=== PATIENT | female | born 1980 | race African-American/Black ===

== ENCOUNTER 2020-05-26 16:32 | Emergency (ER) | payer OTHER ==
[~2020-05-26] VITALS: Ht 152.4 cm; Wt 59.0 kg
[2020-05-26] MEDS ORDERED: METOCLOPRAMIDE 55 M1 PO (17:00)
[2020-05-26] MEDS ORDERED: IBUPROFEN 600600 M1 PO (17:01)
[2020-05-26] MEDS ORDERED: PROAIR HFA8.5 GM INH (17:01)
[2020-05-26] MEDS ORDERED: ACETAMINOPHEN325 MG PO (17:01)
[2020-05-26] MEDS ORDERED: SYMBICORT80 MCG/4.1 INH (17:01)
[2020-05-26 17:54] VITALS: BP 131/86
== END 2020-05-26 17:59 ==
LOC: ER 16:32
DX: M76.32 Iliotibial band syndrome, left leg (principal); J45.909 Unspecified asthma, uncomplicated; Z79.899 Other long term (current) drug therapy

== ENCOUNTER 2020-08-22 19:09 | Emergency (ER) | payer OTHER ==
[~2020-08-22] VITALS: Ht 152.4 cm; Wt 54.4 kg
[~2020-08-22 19:09] MED LIST: ACETAMINOPHEN325 MG PO; ANTI-ITCH28 G1 TOP; IBUPROFEN 600600 M1 PO; METOCLOPRAMIDE 55 M1 PO; PROAIR HFA8.5 GM INH; SYMBICORT80 MCG/4.1 INH; VISTARIL 25 MG25 M1 PO
[2020-08-22 20:58] LABS: HEMOGLOBIN 11.5 gm/dL (12.0-15.0); MCV 87.5 fL (80.0-100.0); WBC 5.3 thou/uL (4.0-11.0)
[2020-08-22 21:00] LABS: ABSOLUTE NEUTROPHILS 2.6 thou/uL (1.4-8.2); BASOPHILS 0.9 % (0.0-2.0); EOSINOPHILS 4.7 % (0.0-3.0); HEMATOCRIT 35.8 % (37.0-47.0); LYMPHOCYTES 37.2 % (24.0-44.0); MCH 28.3 pg (26.0-34.0); MCHC 32.3 g/dL (28.0-37.0); MONOCYTES 7.8 % (1.0-8.0); PLATELET COUNT 213 thou/uL (150-400); POLYS 49.4 % (36.0-66.0); RBC 4.09 mil/uL (4.20-5.00); RDW 14.7 % (10.5-14.5)
[2020-08-22 21:05] LABS: CALCIUM 8.9 mg/dL (8.5-10.1); CREATININE 0.7 mg/dL (0.6-1.0)
[2020-08-22 21:06] LABS: POTASSIUM 2.9 mmol/L (3.5-5.1)
[2020-08-23 00:12] VITALS: BP 123/76
== END 2020-08-23 00:15 | disposition home or self-care (01) ==
LOC: ER 19:09
PROVIDERS: Nurse Practitioner
DX: L72.3 Sebaceous cyst (principal); E87.6 Hypokalemia; R42 Dizziness and giddiness; J45.909 Unspecified asthma, uncomplicated; K21.9 Gastro-esophageal reflux disease without esophagitis; Z79.899 Other long term (current) drug therapy

== ENCOUNTER 2020-10-14 12:39 | Emergency (ER) | payer OTHER ==
[~2020-10-14] VITALS: Ht 152.4 cm; Wt 59.0 kg
[2020-10-14 12:40] VITALS: BP 127/81
== END 2020-10-14 13:29 | disposition home or self-care (01) ==
LOC: ER 12:39
DX: M79.652 Pain in left thigh (principal); J45.909 Unspecified asthma, uncomplicated; Z79.899 Other long term (current) drug therapy; X50.1XXA Overexertion from prolonged static or awkward postures, initial encounter; Y93.89 Activity, other specified; Y92.89 Other specified places as the place of occurrence of the external cause; Y99.8 Other external cause status

== ENCOUNTER 2020-11-18 14:22 | Emergency (ER) | payer OTHER ==
[~2020-11-18] VITALS: Ht 157.5 cm; Wt 55.8 kg
[2020-11-18 15:21] LABS: ABSOLUTE NEUTROPHILS 3.7 thou/uL (1.4-8.2); BASOPHILS 0.6 % (0.0-2.0); EOSINOPHILS 4.7 % (0.0-3.0); HEMATOCRIT 37.4 % (37.0-47.0); HEMOGLOBIN 12.3 gm/dL (12.0-15.0); LYMPHOCYTES 24.7 % (24.0-44.0); MCH 28.4 pg (26.0-34.0); MCHC 32.8 g/dL (28.0-37.0); MCV 86.6 fL (80.0-100.0); MONOCYTES 7.8 % (1.0-8.0); PLATELET COUNT 195 thou/uL (150-400); POLYS 62.2 % (36.0-66.0); RBC 4.32 mil/uL (4.20-5.00); WBC 5.9 thou/uL (4.0-11.0)
[2020-11-18 15:32] LABS: ANION GAP 11 mmol/L (7-16); BUN 10 mg/dL (7-18); CALCIUM 8.9 mg/dL (8.5-10.1); CHLORIDE 100 mmol/L (98-107); CO2 25 mmol/L (21-32); CREATININE 0.7 mg/dL (0.6-1.0); GLUCOSE 101 mg/dL (74-106); POTASSIUM 3.2 mmol/L (3.5-5.1); SODIUM 136 mmol/L (136-145)
[2020-11-18 15:38] LABS: URINE BILIRUBIN NEGATIVE (Negative); URINE BLOOD TRACE (Negative); URINE CLARITY CLEAR; URINE COLOR YELLOW; URINE GLUCOSE-RANDOM* NEGATIVE (Negative); URINE KETONES NEGATIVE (Negative); URINE LEUKOCYTES-REFLEX NEGATIVE (Negative); URINE NITRITE-REFLEX NEGATIVE (Negative); URINE PROTEIN (DIPSTICK) NEGATIVE (Negative); URINE SPECIFIC GRAVITY >= 1.030 (1.005-1.035); URINE UROBILINOGEN 0.2 E.U./dl (0.2-1.0)
[2020-11-18 15:42] LABS: ALBUMIN 3.4 g/dL (3.4-5.0); SGOT 13 U/L (15-37); SGPT 16 U/L (14-59); TOTAL BILIRUBIN 1.1 mg/dL (0.2-1.0); TOTAL PROTEIN 7.4 g/dL (6.4-8.2); TROPONIN-I <0.06 ng/mL (<0.06)
[2020-11-18] MEDS ORDERED: POTASSIUM20 PO (17:05)
[2020-11-18] MEDS ORDERED: CARAFATE 1 GM TA1 G1 PO (17:06)
[2020-11-18 17:34] VITALS: BP 120/73
--- NOTE | 2020-11-20 07:23 | EKG ---
[place] [address] [facility]ings[facility] [place] [address] ELECTROCARDIOGRAM REPORT Name: MAYA SHEPHERD Room #: [facility] ABRIL Ruvalcaba#: [id number] Admission: 11/18/20 Attend Phys: Discharge: 11/18/20 Date of : 82 Report #: [id number] [facility] ED Test Date: 2020-11-18 Test Time: 14:27:33 Pat Name: MAYA SHEPHERD Department: Room: Gender: F Ob Gyn: CHAYITO : 1980 Requested By: Steven Garcia Order Number: [id number] MD: Yves Candelaria Measurements Intervals [place] Rate: 82 P: 63 OK: 152 QRS: 67 QRSD: 88 T: 18 QT: 402 QTc: 470 Interpretive Statements Sinus rhythm Consider left ventricular hypertrophy Borderline T abnormalities, anterior leads Compared to ECG 01/18/2009 19:08:22 T-wave abnormality now present Electronically Signed On 11-20-2020 7:23:10 CDT by Yves Candelaria [email or web address] <ELECTRONICALLY SIGNED> By: Yves Candelaria MD, [facility] 11/20/20 0723 D: 03/1426 26 Yves Candelaria MD, FACC /EPI
== END 2020-11-18 17:34 | disposition home or self-care (01) ==
LOC: ER 14:22
PROVIDERS: Physician Assistant
DX: R07.89 Other chest pain (principal); J45.909 Unspecified asthma, uncomplicated; Z79.899 Other long term (current) drug therapy